=== PATIENT | female | born 1960 | race Caucasian/White ===

== ENCOUNTER 2017-05-05 10:11 | Outpatient (CLI) | payer BC | END 2017-05-05 10:12 | disposition home or self-care (01) | LOC: LABBT 10:11 | PROVIDERS: ATTEND Surgery | DX: Z01.818 Encounter for other preprocedural examination (principal); D24.2 Benign neoplasm of left breast; N63.0 Unspecified lump in unspecified breast ==

== ENCOUNTER 2017-05-07 08:36 | Inpatient (IN) | payer BC ==
[2017-05-07] MEDS ORDERED: CEFAZOLIN/Water 2 GM/20 ML SYRINGE ONE (09:21)
[2017-05-07] MEDS ORDERED: Fentanyl 100 MCG/2 ML VIAL ONE ×3 (11:02→14:00)
[2017-05-07] MEDS ORDERED: HYDROmorphone 0.5 MG/0.5 ML SYRINGE ONE (11:02)
[2017-05-07] MEDS ORDERED: Midazolam HCl 2 mg/2 ml Vial ONE (11:08)
[2017-05-07] MEDS ORDERED: Propofol 200 MG/20 ML VIAL ONE (13:38)
[2017-05-07] MEDS ORDERED: Dexamethasone 20 MG/5 ML VIAL ONE (13:38)
[2017-05-07] MEDS ORDERED: Lidocaine 1% PF 5 ML VIAL ONE (13:38)
[2017-05-07] MEDS ORDERED: Ondansetron HCl/PF 4 MG/2 ML Vial ONE (13:38)
[2017-05-07] MEDS ORDERED: Metoclopramide HCl 10 MG/2 ML VIAL ONE (13:38)
[2017-05-07] MEDS ORDERED: Ondansetron HCl/PF 4 MG/2 ML Vial IVP PRN ×2 (13:47→13:53)
[2017-05-07] MEDS ORDERED: diphenhydrAMINE 50 MG/ML VIAL IVP PRN (13:47)
[2017-05-07] MEDS ORDERED: Naloxone HCl 0.4 mg/ml Vial IV PRN (13:47)
[2017-05-07] MEDS ORDERED: diphenhydrAMINE 25 MG CAP PO PRN (13:47)
[2017-05-07] MEDS ORDERED: Fentanyl 5000 MCG/250 ML CADD IVPB PRN (13:47)
[2017-05-07] MEDS ORDERED: diphenhydrAMINE 50 MG/ML VIAL IM PRN (13:47)
[2017-05-07] MEDS ORDERED: Zolpidem Tartrate 5 MG TAB PO PRN (13:47)
[2017-05-07] MEDS ORDERED: Promethazine HCl 25 MG/ML VIAL IM PRN ×2 (13:47→13:53)
[2017-05-07] MEDS ORDERED: hydrALAZINE 20 MG/ML VIAL SLOW IVP PRN (13:53)
[2017-05-07] MEDS ORDERED: Dextrose 50% Abboject 50 ML SYRINGE SLOW IVP PRN (13:53)
[2017-05-07] MEDS ORDERED: Dextrose 5% in Water 1,000 ML IV PRN (13:53)
[2017-05-07] MEDS ORDERED: [UNRECOGNIZED DRUG - REMARK] FS SCH (14:00)
[2017-05-07] MEDS ORDERED: fentaNYL Citrate/PF 2,000 MCG in Sodium Chloride 0.9% 60 ML IV PRN (14:30)
[2017-05-07] MEDS: Sodium Chloride 0.9% 1,000 ML IV SCH (15:30)
[2017-05-07 15:51] VITALS: BMI 31.4
[2017-05-07] MEDS ORDERED: FLU VACC QS2017-18 36 mo. & older 0.5 ML SYRINGE IM ONE (16:45)
[2017-05-07] MEDS: Ketorolac Tromethamine 30 MG/ML VIAL IVP PRN (19:18)
[2017-05-07] MEDS: Famotidine 20 MG TAB PO SCH (20:59)
[2017-05-07] MEDS: Acetaminophen 1,000 MG in Premix Bag 1 BAG IVPB PRN (21:36)
--- NOTE | 2017-05-07 21:44 | OP ---
DATE OF PROCEDURE: 05/07/2017 PREOPERATIVE DIAGNOSES: 1. History of intraductal papilloma. 2. History of chronic severe breast pain. 3. Recurrent left breast mass. POSTOPERATIVE DIAGNOSES: 1. History of intraductal papilloma. 2. History of chronic severe breast pain. 3. Recurrent left breast mass. PROCEDURE: Left simple mastectomy. SURGEON: Liam Keith MD ANESTHESIA: General. ESTIMATED BLOOD LOSS: Minimal. COMPLICATIONS: None. SPECIMEN: Left breast marked with two short superior, one long lateral. INDICATION: The patient is a 56-year-old female with a history of left lumpectomy for mammographic a bnormality. This was biopsied and revealed potential for DCIS. Her pathology on lumpectomy revealed intraductal papilloma, but no obvious malignancy. The patient had severe sharp pain in her breast a lmost immediately after that surgery that persisted postop. She has undergone local block with stero ids and Marcaine in the office with no improvement. She has been on both NSAIDs and narcotics for th is pain that will not improve. She has recurrent mass in the area of previous lumpectomy, an ultraso und revealed it to the most likely just scar tissue. There were a few small cysts in the area. Afte r a long discussion with the patient about options including frequent blocks or long-term pain manage ment, she elected to and desired simple mastectomy. Risks, benefits, alternatives were discussed. S he understood the risk of bleeding, infection, scarring, flap necrosis, persistent chronic pain, gave consent for surgery. TECHNIQUE: The patient was taken to the operating room and placed supine on the table. After genera l anesthetic was obtained, the left chest was prepped and draped in a sterile fashion. An elliptical incision was used to ellipse out the nipple areolar complex. Flaps are raised superior to the level of clavicle, medial to the sternum, laterally to latissimus dorsi muscle, inferiorly to the inframam li fold. The breast is taken off the chest wall with the pectoralis fascia coming with the specime n, leaving the muscle intact underneath. Meticulous hemostasis was obtained in the wound, the left c hest cavity is irrigated, and the 19-round drain brought out through a separate stab incision, left i n the left breast cavity. The wound was closed using 3-0 Vicryl, 4-0 Monocryl, and Dermabond. The p atient was en route to recovery in stable condition. All instrument counts, needle counts, and lap c ounts were correct.
[2017-05-08] MEDS: Ketorolac Tromethamine 30 MG/ML VIAL IVP PRN ×4 (01:17→23:31)
[2017-05-08] MEDS: Acetaminophen 1,000 MG in Premix Bag 1 BAG IVPB PRN (04:50)
[2017-05-08] MEDS: Famotidine 20 MG TAB PO SCH ×2 (08:29→20:23)
[2017-05-08] MEDS ORDERED: Estradiol 1 MG TAB PO SCH (09:00)
[2017-05-08] MEDS ORDERED: Loratadine/Pseudoephedrine 10/240 mg Tablet PO PRN (09:00)
[2017-05-08] MEDS: Estradiol 1 MG TAB PO SCH (13:45)
[2017-05-08] MEDS: Acyclovir 400 mg Tablet PO SCH ×2 (17:26→20:23)
[2017-05-08] MEDS: Sodium Chloride 0.9% 1,000 ML IV SCH (17:28)
[2017-05-09] MEDS: Estradiol 1 MG TAB PO SCH (08:18)
[2017-05-09] MEDS: Acyclovir 400 mg Tablet PO SCH (08:18)
[2017-05-09] MEDS: Famotidine 20 MG TAB PO SCH (08:18)
[2017-05-09] MEDS: Ketorolac Tromethamine 30 MG/ML VIAL IVP PRN (08:23)
[2017-05-09] MEDS ORDERED: Polyethylene Glycol 3350 17 GM Packet PO SCH (09:55)
[2017-05-09 12:01] VITALS: BP 132/76; TEMP 98.1
[2017-05-10] MEDS ORDERED: Polyethylene Glycol 3350 17 GM Packet PO SCH (09:00)
--- NOTE | 2017-05-12 11:14 | DIS ---
DATE OF ADMISSION: 05/07/2017 DATE OF DISCHARGE: 05/09/2017 ADMITTING DIAGNOSES: Left breast and intraductal papilloma; left breast severe chronic pain, status post left breast mastectomy. POSTOPERATIVE DIAGNOSES: Left breast and intraductal papilloma; left breast severe chronic pain, sta tus post left breast mastectomy; herpes zoster outbreak. PROCEDURES: Left mastectomy, simple. ATTENDING: Liam Keith M.D. COMPLICATIONS: None. CONDITION AT DISCHARGE: Improved. HOSPITAL COURSE: On postop day #2, the patient is doing well. Her pain is controlled. Her drain te aching has been performed. She did have back pain followed by rash outbreak consistent with zoster o utbreak, which she has had before. She was started on her normal acyclovir. She is being discharged home. The family and friends have been instructed on drain care. She is going to keep herself wrap ped to the most part. She will follow up with my office and have Dr. Bo remove her drain next or if it is less than 30 mL a day. Otherwise, she will see me back in a week from Thu. Prescription given for acyclovir 400 mg p.o. t.i.d. for 5 days, tramadol 50 mg 1-2 p.o. q.6 kalyani rs p.r.n. pain, and Ambien 5 mg p.o. at bedtime p.r.n.
== END 2017-05-09 13:18 | disposition home or self-care (01) | DRG 584 ==
LOC: SDC 08:36 → ONC 12:45 → SDC 05-08 10:45 → ONC 05-08 15:40 → SURG A 05-08 17:48
PROVIDERS: ADMIT Surgery; ATTEND Surgery
PROC: 0HTU0ZZ Resection of Left Breast, Open Approach (ICD-10-PCS; principal; 2017-05-08)
DX: D24.2 Benign neoplasm of left breast (principal); B02.8 Zoster with other complications; N64.4 Mastodynia
CPT/HCPCS: 36416; 88307; J0131; J1100; J1170; J1885; J2001; J2250; J2405; J2704; J2765; J3010; J7050

== ENCOUNTER 2017-07-06 05:46 | Day surgery (SDC) | payer BC ==
[2017-07-03 08:47] VITALS: BMI 30.5
[2017-07-06] MEDS ORDERED: Heparin 5,000 UNITS/ML VIAL ONE (06:22)
[2017-07-06] MEDS ORDERED: CEFAZOLIN/Water 2 GM/20 ML SYRINGE ONE (06:22)
[2017-07-06] MEDS ORDERED: Lidocaine 1% w/Epinephrine 1:200K 30 ML VIAL ONE (06:43)
[2017-07-06] MEDS ORDERED: Bupivacaine 0.25% HCL 30 ML VIAL ONE (06:43)
[2017-07-06] MEDS ORDERED: Bupivacaine HCl 0.5%/Epinephrine 1:200,000/PF 30 ml Vial ONE (06:43)
[2017-07-06] MEDS ORDERED: Gentamicin 80 MG/2 ML VIAL ONE (06:43)
[2017-07-06] MEDS ORDERED: Sodium Chloride 0.9% 20 ML ONE (06:45)
[2017-07-06] MEDS ORDERED: Fentanyl 100 MCG/2 ML VIAL ONE ×5 (06:49→11:54)
[2017-07-06] MEDS ORDERED: HYDROmorphone 0.5 MG/0.5 ML SYRINGE ONE ×3 (06:49→12:48)
[2017-07-06] MEDS ORDERED: Midazolam HCl 2 mg/2 ml Vial ONE (07:05)
[2017-07-06] MEDS ORDERED: Ropivacaine 0.2% 550 ML 550 ML NERVE BLCK SCH ×2 (07:45→08:00)
[2017-07-06] MEDS ORDERED: Promethazine HCl 25 MG/ML VIAL IM PRN (07:45)
[2017-07-06] MEDS ORDERED: Ondansetron HCl/PF 4 MG/2 ML Vial IVP PRN (07:45)
[2017-07-06] MEDS ORDERED: traMADol HCl 50 MG TAB PO PRN ×2 (07:45)
[2017-07-06] MEDS ORDERED: Zolpidem Tartrate 5 MG TAB PO PRN (07:45)
[2017-07-06] MEDS ORDERED: HYDROcodone/Acetaminophen 10/325 mg Tablet PO PRN ×2 (07:45)
[2017-07-06] MEDS ORDERED: Fentanyl 100 MCG/2 ML VIAL IV PRN (07:46)
[2017-07-06] MEDS ORDERED: Ropivacaine 0.5% HCl/PF (150 MG/30 ML VIAL) ONE (09:18)
--- NOTE | 2017-07-06 11:11 | OP ---
PREOPERATIVE DIAGNOSES: 1. History of left breast papillomatosis with chronic infections. 2. Status post left mastectomy. 3. Breast asymmetry. 4. Right breast ptosis. PROCEDURES PERFORMED: 1. Placement of left tissue hat brim curler for breast reconstruction (10211.LT). 2. Placement of acellular dermal matrix ([id number]). 3. Right mastopexy. PROCEDURE IN DETAIL: Following induction of adequate anesthesia, the patient was prepped and draped in the usual sterile fashion in the supine position. An inframammary crease incision was made. Diss ection was carried sharply down to the underlying pectoralis fascia. The subsequent and adequate pre pectoral pocket was created. A [place] 375 mL high profile [place] tissue hat brim curler was placed with Al loDerm over its anterior surface. It was secured to the tabs as well as to the fascia inferiorly. T his was done after the pocket was copiously irrigated and inspected for meticulous hemostasis. Irrig ation was triple antibiotic solution and dilute Betadine solution. New gloves were donned for the pl acement of the hat brim curler and barrier dressing was placed for the placement. The incision was then shalonda sed with 3-0 PDS suture and 3-0 Monocryl suture. The port was accessed transcutaneously and the expa nder was filled to a volume of 300 mL. Attention was turned to the right side. A modified Mejia pattern mastopexy had been preoperatively ma rked. The nipple was circumcised around a 42 mm nipple sizer. The skin within the Mejia pattern was epithelialized. Skin flaps were raised superiorly, medially, and laterally. The central pedicle was then sutured superiorly to elevate the breast as well as laterally and medially to sculpt the breast . This some excision was done for sculpting laterally. The field was copiously irrigated and inspec roni for meticulous hemostasis prior to closure of the inverted T with 3-0 PDS suture and 3-0 Monocryl suture with the nipple being brought out through a 42 mm nipple defect. The nipple was inset using 3-0 Monocryl suture. The patient tolerated the procedure well.
[2017-07-06] MEDS ORDERED: Ketorolac Tromethamine 30 MG/ML VIAL ONE (11:54)
[2017-07-06] MEDS ORDERED: diphenhydrAMINE 50 MG/ML VIAL ONE (14:51)
[2017-07-06] MEDS ORDERED: Dexamethasone 20 MG/5 ML VIAL ONE (14:51)
[2017-07-06] MEDS ORDERED: Lidocaine 1% PF 5 ML VIAL ONE (14:51)
[2017-07-06] MEDS ORDERED: Glycopyrrolate 0.2 MG/ML 5 ML SYRINGE ONE (14:51)
[2017-07-06] MEDS ORDERED: PROPOFOL 200 MG/20 ML VIAL ONE (14:51)
[2017-07-06] MEDS ORDERED: Ondansetron HCl/PF 4 MG/2 ML Vial ONE (14:51)
== END 2017-07-06 15:35 | disposition home or self-care (01) ==
LOC: SDC 05:46
PROVIDERS: ATTEND Plastic Surgery
PROC: 0HHU0NZ Insertion of Tissue Expander into Left Breast, Open Approach (ICD-10-PCS; principal; 2017-07-06)
PROC: 0HQT0ZZ Repair Right Breast, Open Approach (ICD-10-PCS; principal; 2017-07-06)
DX: N65.1 Disproportion of reconstructed breast (principal); J45.909 Unspecified asthma, uncomplicated; Z79.890 Hormone replacement therapy; Z79.899 Other long term (current) drug therapy; Z88.5 Allergy status to narcotic agent; Z88.8 Allergy status to other drugs, medicaments and biological substances; Z88.1 Allergy status to other antibiotic agents; Z90.12 Acquired absence of left breast and nipple; Z98.890 Other specified postprocedural states
CPT/HCPCS: 88305; 96374; A4216; A4306; J0131; J0670; J1100; J1170; J1200; J1580; J1644; J1885; J2001; J2250; J2405; J2704; J2795; J3010; J3370; J3490; Q4116; S0020

== ENCOUNTER 2017-10-19 05:28 | Day surgery (SDC) | payer BC ==
[2017-10-16 10:29] VITALS: BMI 29.7
[2017-10-19] MEDS ORDERED: CEFAZOLIN/Water 2 GM/20 ML SYRINGE ONE (06:05)
[2017-10-19] MEDS ORDERED: Heparin 5,000 UNITS/ML VIAL ONE (06:06)
[2017-10-19 06:29] LABS: Hemoglobin 14.6 g/dL (12.0-16.0); Mean Corpuscular HGB CONC 34.2 g/dL (32.0-36.0); Mean Corpuscular Hemoglobin 30.3 pg (27.0-31.0); Mean Corpuscular Volume 88.6 fl (81.0-99.0); Mean Platelet Volume 7.8 fL (7.4-10.4); Platelet Count 261 thou/uL (130-400); RBC Distribution Width 12.2 % (11.5-14.5); White Blood Cell (WBC) Count 8.1 thou/uL (4.8-10.8)
[2017-10-19] MEDS ORDERED: Fentanyl 250 MCG/5 ML VIAL ONE (06:40)
[2017-10-19] MEDS ORDERED: Gentamicin 80 MG/2 ML VIAL ONE (06:41)
[2017-10-19] MEDS ORDERED: Sodium Chloride 0.9% 10 ML ONE (06:41)
[2017-10-19] MEDS ORDERED: Bupivacaine/Epinephrine 0.25% 30 ML VIAL ONE ×2 (06:41→07:56)
[2017-10-19 07:00] LABS: Eosinophils 2 % (0-10); Lymphocytes 35 % (21-51); MDiff Complete? YES; Monocytes 7 % (0-10); Neutrophil 56 % (42-75)
[2017-10-19] MEDS ORDERED: Midazolam HCl 2 mg/2 ml Vial ONE (07:22)
[2017-10-19] MEDS ORDERED: EPINEPHrine 1 MG/ML AMP ONE (07:45)
[2017-10-19] MEDS ORDERED: Fentanyl 100 MCG/2 ML VIAL ONE (10:21)
[2017-10-19] MEDS ORDERED: traMADol HCl 50 MG TAB ONE (11:22)
[2017-10-19] MEDS ORDERED: Ondansetron HCl/PF 4 MG/2 ML Vial ONE (12:21)
[2017-10-19] MEDS ORDERED: PROPOFOL 200 MG/20 ML VIAL ONE (12:21)
[2017-10-19] MEDS ORDERED: Dexamethasone 20 MG/5 ML VIAL ONE (12:21)
[2017-10-19] MEDS ORDERED: Glycopyrrolate 0.2 MG/ML 5 ML SYRINGE ONE (12:21)
[2017-10-19] MEDS ORDERED: Lidocaine 1% PF 5 ML VIAL ONE (12:21)
--- NOTE | 2017-10-19 12:48 | EKG ---
Test Reason : PREOP Blood Pressure : / mmHG Vent. Rate : 061 BPM Atrial Rate : 061 BPM P-R Int : 156 ms QRS Dur : 080 ms QT Int : 422 ms P-R-T Axes : 044 022 036 degrees QTc Int : 424 ms Normal sinus rhythm Normal ECG No previous ECGs available Confirmed by KARLA KELLEY ([id number]), film editor supervisor BREANNA WOODS ([id number]) on 10/19/2017 12:47:38 PM Referred By: NATALIIA Confirmed By:KARLA KELLEY
--- NOTE | 2017-10-19 19:19 | OP ---
PREOPERATIVE DIAGNOSES: 1. Status post left mastectomy. 2. Status post left tissue talent acquisition assistant placement. PROCEDURE: 1. Replacement of left tissue talent acquisition assistant with capsule work (). 2. Fat grafting, left breast (). PROCEDURE IN DETAIL: Following induction of adequate anesthesia, the patient was prepped and draped in the usual sterile fashion in supine position. An inframammary crease incision was made with disse ction being carried down sharply through the subcutaneous tissue to the underlying capsule, which was incised. A small amount of unincorporated Strattice was excised. The remainder of the capsule look ed very good. The pocket was opened superiorly from 10 o'clock to 12 o'clock to 2 o'clock to allow f or proper redraping. The pocket was copiously irrigated with dilute antibiotic solution and dilute B etadine solution prior to placement of a sizer to determine what implant would give the symmetry. A [place] 375 high profile implant was chosen. The sizer was removed and the pocket was reirrigated and inspected meticulous hemostasis prior to placement of a skin barrier and placement of final implant using no touch technique. The inframammary crease incision was closed in layers using 3-0 PDS suture and 3-0 Monocryl suture. Attention was turned to the fat grafting. A 1:100,000 epinephrine, tumescent fluid was injected into the abdomen. After set out adequate time to take effect, traditional liposuction was performed to h arvest fat. The fat was allowed to separate by gravity and then was decanted. The fat was then rein jected in an immediate subdermal subcutaneous plane using microdroplet technique. This was done thro ugh an 18 gauge stab incision lateral to the mastectomy scar. The incision was closed with 5-0 fast gut suture. The abdominal incision was closed with 4-0 Monocryl suture. The patient tolerated the p rocedure well.
== END 2017-10-19 12:23 | disposition home or self-care (01) ==
LOC: SDC 05:28
PROVIDERS: ATTEND Plastic Surgery
PROC: 0HPU0NZ Removal of Tissue Expander from Left Breast, Open Approach (ICD-10-PCS; principal; 2017-10-19)
PROC: 0HHU0NZ Insertion of Tissue Expander into Left Breast, Open Approach (ICD-10-PCS; principal; 2017-10-19)
DX: Z45.812 Encounter for adjustment or removal of left breast implant (principal); N60.12 Diffuse cystic mastopathy of left breast; Z88.5 Allergy status to narcotic agent; Z79.899 Other long term (current) drug therapy
CPT/HCPCS: 36415; 85025; 93005; 93010; 96374; A4216; J0171; J1100; J1580; J1644; J2001; J2250; J2405; J2704; J3010; J3370; J3490; L8600

== ENCOUNTER 2018-09-25 02:38 | Inpatient (IN) | payer OTHER ==
[2018-09-25] MEDS ORDERED: Ondansetron PF 4 MG/2 ML Vial ONE (03:44)
[2018-09-25] MEDS ORDERED: Morphine 2 MG/ML SYRINGE ONE (03:44)
[2018-09-25] MEDS ORDERED: Fentanyl 100 MCG/2 ML VIAL ONE (03:50)
[2018-09-25 05:25] VITALS: BMI 32.1
[2018-09-25] MEDS ORDERED: Ondansetron ODT 4 MG TAB SL PRN (05:25)
[2018-09-25] MEDS ORDERED: Ondansetron PF 4 MG/2 ML Vial IVP PRN (05:25)
[2018-09-25] MEDS: Fentanyl 100 MCG/2 ML VIAL SLOW IVP PRN ×6 (05:46→23:33)
[2018-09-25 06:36] LABS: Troponin I Less than 0.010 ng/mL (< 0.028)
[2018-09-25] MEDS ORDERED: Aspirin Chewable 81 MG TAB PO SCH (09:00)
[2018-09-25 09:34] LABS: Troponin I Less than 0.010 ng/mL (< 0.028)
[2018-09-25] MEDS ORDERED: ISOVUE-370 76%-LOCM 1 ML ONE (11:08)
[2018-09-25] MEDS: Sodium Chloride 0.9% 1,000 ML IV SCH ×2 (12:02→20:18)
--- NOTE | 2018-09-25 18:12 | HP ---
CHIEF COMPLAINT: Syncope and chest pain. HISTORY OF PRESENT ILLNESS: This patient is a 57-year-old female, who reports that 1 month ago, she had elevated blood pressure. Her pressures were in the [address] Michelle Conner, who gave her some antihypertensive. She reports at that time she was having some chest pains that were radiating to her left shoulder and arm. She states that Dr. Conner wanted to treat her medically and address the blood pressure. She did in fact give her antihypertensives to include lisinopril/hydrochlorothiazide . The patient reports that subsequent to that her blood pressure systolically would drop into the 90s. She reports at one point it got as low as 60s. She stated that when she would get up to walk to let her dog out, she would break out in a cold sweat and feel lightheaded. She thought this might have been related to the pressure being too low. She does report that her chest pain symptoms did improve after that, but she has profound fatigue. She also reports that she has some generalized fluid retention, which is why she had the hydrochlorothiazide portion included in her antihypertensives. She reports that she initially saw Dr. Rainey because Dr. Conner was out, and he checked a thyroid level, which was abnormal; however, when she followed up with Dr. Conner, had it repeated, it was in the normal range. The patient reports that 2 days ago, she was experiencing significant indigestion and reflux-type symptoms. She had associated pain in her neck and shoulders. Yesterday she was at baseline when out with her cousin in the evening to a restaurant, the two of them had a regular meal, but split a bottle of wine. She decided to get up to go to the bathroom. When she got to the bathroom, she became nauseated and states that everything went black and she passed out. Apparently, she was found by a bystander coming into the bathroom and noted that she was on her back and had vomited. That bystander rolled her off her back onto her side and apparently performed CPR. The patient's cousin responded and indicates that the patient was actually which she would consider coherent; however, the patient does not remember anything other than them trying to load her into her cousin's truck and then getting loaded into the bed at the emergency room, but she does not remember anything in between those episodes. The patient's cousin reports that the patient herself indicated that she needed to go to the emergency department. In the emergency department in [place] where they initially presented, the patient reports that when she "came to," she was experiencing significant chest pain, which felt like a pressure, someone sitting on her chest. She initially attributed to the fact that she had lifted some boxes at work yesterday before going out for the evening. She reports she does have some associated shortness of breath, and the pain is primarily in the left chest and does radiate down the left arm. REVIEW OF SYSTEMS: Notable for some exertional chest pain when she gets out and try to walk her dogs. Otherwise, all systems reviewed, all pertinent positives and negatives noted in the history of present illness. PAST MEDICAL HISTORY: Notable for hypertension; irritable bowel syndrome, which has been quiescent for some time; history of breast cancer with no chemo or radiation, surgery only. She also reports "shingles" that occur at the upper gluteal cleft and occur one side or the other frequently multiple times throughout the year. She reports this has been going on since she was 19 years old, and she does get the classic blister formation. The patient also reports that in 2011, she was having some neck problems and received tizanidine and subsequently baclofen. She states within a matter of day, she ended up in the hospital and from what she describes she had substantial volume overload and ascites. She was told that she had liver and heart failure and would need a transplant of both organs and only had 6 months to live. Otherwise, she states she was in the hospital for a month. They attempted to do a liver biopsy, but had to do a paracentesis first and then did do the biopsy. She says that they had her tuned up and sent her home, and within 3 days, she was back in the hospital, all the while she was still taking the tizanidine and baclofen. During the 2nd admission, she was told by another specialist that the symptoms were a textbook medication reaction and they took her off those medications and her symptoms improved. Apparently, she somewhere in there she was told that she had hepatitis C and was going to need another liver biopsy, but she states she followed up with Dr. Azul, who checked serologies and told her that she did not have hepatitis C. Labs within our electronic record system indicate that she had a hepatitis panel performed in 2012, and under result of hepatitis C antibody is high-weighted LESS, reflex RIBA, indication that there is a high value. She reports that she has not had any significant problems since that time. PAST SURGICAL HISTORY: Appendectomy, tonsillectomy, hysterectomy, multiple breast surgeries related to the cancer, which initially involved a lumpectomy, subsequent mastectomy, and then reconstruction. FAMILY HISTORY: Father of cancer. Her mother had dementia, hypertension, and also had colon cancer. She has two brothers with hypertension and third brother with colon cancer. There is no coronary artery disease in the family. SOCIAL HISTORY: No tobacco use. The patient rarely uses alcohol. States she did not drink in six months prior to this event. She denies drugs. She is in a common-law marriage. Her 's name is John Caban. She is full code, and her would be her surrogate decision maker should that become necessary. ALLERGIES: BACLOFEN, CODEINE, HYDROCODONE, MORPHINE, TIZANIDINE. CURRENT MEDICATIONS: 1. Lisinopril/hydrochlorothiazide 10/12.5 one p.o. daily. 2. Estradiol 1 mg p.o. q.a.m. 3. Zyrtec-D 1 p.o. p.r.n. PHYSICAL EXAMINATION: VITAL SIGNS: Temperature 97.9, pulse 78, respirations 18, O2 saturation 98% on room air, and blood pressure is 119/69. GENERAL APPEARANCE: An age-appropriate female, in no distress. She is awake, alert, oriented, pleasant, cooperative, in no distress. HEENT: PERRL. No OP lesions. NECK: Supple and symmetric without lymphadenopathy, JVD, or bruits. HEART: Regular rate and rhythm without murmurs, gallops, or rubs. LUNGS: Clear to auscultation bilaterally with good chest wall expansion and air exchange. ABDOMEN: Soft, nontender, and nondistended. Positive bowel sounds. No masses. No organomegaly. EXTREMITIES: No cyanosis, clubbing, or edema. NEUROLOGICAL: The patient has spontaneous movement of all extremities. Cranial nerves are intact. She has no focal deficits. LABORATORY DATA: White count 8.7, hemoglobin 14.3, and platelets 272. D-dimer 0.6. Sodium 139, potassium 3.1, chloride 106, CO2 of 19, BUN 11, creatinine 0.92. AST 21, ALT 30, troponin initially 0.041, subsequent less than 0.01 x3. Albumin is 4.4, lipase 12. Urinalysis negative. Urine drug screen negative. Initial plasma alcohol was 151. Chest x-ray is negative. CTA of the chest pending. IMPRESSION AND PLAN: 1. Syncopal episode, unclear etiology. Differential includes vasovagal syncope related to alcohol consumption and nausea versus orthostatic hypotension related to recent addition of blood pressure medications versus some other cardiac issue given her unusual history as stated in the past medical history. The patient's EKG is essentially unremarkable other than mildly low potassium and CO2. The patient's labs are otherwise generally unremarkable. Her initial troponin was indeterminate, and subsequent have all been negative. We will obtain an echocardiogram, and orthostatic vital signs and give her some fluids. 2. Elevated troponin in the setting of a syncopal episode. Again, we will check an echocardiogram, it is really in the equivocal range, and Remainders have been negative. Again, the patient may have had some chest compressions as a result of bystander CPR when she was syncopal in the bathroom in the restaurant. This may cause a slight bump in her troponin levels. The patient has no significant risk factors for coronary artery disease other than a very recent diagnosis of hypertension. 3. Elevated D-dimer, minimally elevated. CTA is ordered and pending. 4. Hypertension. The patient is reporting hypotension relative to recent blood pressure medications. We will hold those for now. 5. Acute alcohol intoxication. The patient appears to have resolved this at this point. 6. Possible aspiration. Reviewing the CTA myself, there appears to be a small area of abnormality in the right apex and upper lobe area very laterally. We will wait for the formal read from the radiologist. 7. History of breast cancer. The patient is having chest pain, which could be related to her prior surgeries. She has minimal risk factors for coronary artery disease that certainly has been in the differential as well. We will await the echo results. Continue to keep her on telemetry monitoring. May discuss with Cardiology as well. 8. Hypokalemia, mild. Receive some IV repletion. We will need to recheck to confirm normalization. 9. The patient describes a history of cardiac and liver failure in 2011 and sounds like it is an unusual situation, but thoughtfully will get some infect from the echocardiogram to ensure that she has normal cardiac function. Job ID: [id number]
[2018-09-26] MEDS: Fentanyl 100 MCG/2 ML VIAL SLOW IVP PRN ×5 (04:11→23:06)
[2018-09-26] MEDS ORDERED: ADENOSINE 60 MG/20 ML VIAL ONE (09:58)
[2018-09-26] MEDS ORDERED: Diabetic Tussin 200 MG/10 ML UDCUP PO PRN (11:13)
[2018-09-26] MEDS ORDERED: Zolpidem Tartrate 5 MG TAB PO PRN (11:13)
[2018-09-26] MEDS ORDERED: Sodium Chloride 0.65% Nasal 44 ML BOT EA NARE PRN (11:13)
[2018-09-26] MEDS ORDERED: Cepastat Lozenges 1 LOZ PO PRN (11:13)
[2018-09-26] MEDS ORDERED: Ondansetron PF 4 MG/2 ML Vial IVP PRN (11:13)
[2018-09-26] MEDS ORDERED: Bisacodyl 5 MG TAB PO PRN (11:13)
[2018-09-26] MEDS ORDERED: Loperamide HCl 2 MG CAP PO PRN (11:13)
[2018-09-26] MEDS ORDERED: Ondansetron ODT 4 MG TAB PO PRN (11:13)
[2018-09-26] MEDS ORDERED: Senokot S 8.6-50 MG TAB PO PRN (11:13)
[2018-09-26] MEDS ORDERED: Artificial Tear Sol 15 ML BOT EA EYE PRN (11:13)
[2018-09-26] MEDS ORDERED: Eucerin (Mineral Oil/Petrolatum,White) 30 gm Jar TOP PRN (11:13)
[2018-09-26] MEDS ORDERED: Loratadine 10 MG TAB PO PRN (11:13)
--- NOTE | 2018-09-26 11:13 | PDOC.PN ---
- Subjective Encounter Start Date: 09/26/18 Encounter Start Time: 15:33 -: old records requested/rev Patient seen and examined. No new complaints. No overnight events she feels dizzy when walk - Objective Resuscitation Status - Order Detail: 09/25/18 10:30 Resuscitation Status Routine Resuscitation Status: FULL: Full Resuscitation MAR Reviewed: Yes Vital Signs & Weight: Vital Signs (12 hours) Temp Pulse Resp BP Pulse Ox 09/26/18 07:57 97.7 F 68 16 119/75 97 09/26/18 04:00 97.6 F 76 16 110/63 99 09/25/18 23:54 98.4 F 72 16 109/59 L 95 Weight Weight 181 lb 6.4 oz I&O: 09/25/18 09/26/18 09/27/18 06:59 06:59 06:59 Intake Total 270 2712 Output Total 500 Balance -230 2712 Radiology Reviewed by me: Yes EKG Reviewed by me: Yes Phys Exam - Physical Examination Constitutional: NAD HEENT: PERRLA, moist MMs, sclera anicteric Neck: no JVD, supple Respiratory: no wheezing, no rales, no rhonchi Cardiovascular: RRR, no significant murmur, no rub Gastrointestinal: soft, non-tender, no distention, positive bowel sounds Musculoskeletal: no edema, pulses present Neurological: non-focal, normal sensation, moves all 4 limbs Lymphatic: no nodes Psychiatric: normal affect, A&O x 3 Skin: no rash, normal turgor Dx/Plan (1) Chest pain Code(s): R07.9 - CHEST PAIN, UNSPECIFIED Status: Acute (2) Elevated d-dimer Code(s): R79.89 - OTHER SPECIFIED ABNORMAL FINDINGS OF BLOOD CHEMISTRY Status : Acute (3) Hypokalemia Code(s): E87.6 - HYPOKALEMIA Status: Acute (4) Syncope Code(s): R55 - SYNCOPE AND COLLAPSE Status: Acute (5) H/O malignant neoplasm of breast Code(s): Z85.3 - PERSONAL HISTORY OF MALIGNANT NEOPLASM OF BREAST Status: Chronic (6) Hypertension Code(s): I10 - ESSENTIAL (PRIMARY) HYPERTENSION Status: Chronic (7) Obesity (BMI 30.0-34.9) Code(s): E66.9 - OBESITY, UNSPECIFIED Status: Chronic (8) Acute alcohol intoxication Code(s): F10.929 - ALCOHOL USE, UNSPECIFIED WITH INTOXICATION, UNSPECIFIED Status: Resolved (9) Elevated troponin Code(s): R74.8 - ABNORMAL LEVELS OF OTHER SERUM ENZYMES Status: Resolved - Plan cont current plan of care * CTA negative * Echo unremarkable * today stress test * continue IVF * suspecting hypotension contributed her presentation and suspecting from antihypertensive meds * medication reviewed as below * symptomatic treatment. * will monitor Review of Systems - Review of Systems ENT: negative: Ear Pain, Ear Discharge, Nose Pain, Nose Discharge, Nose Congestion, Mouth Pain, Mouth Swelling, Throat Pain, Throat Swelling, Other Respiratory: negative: Cough, Dry, Shortness of Breath, Hemoptysis, SOB with Excertion, Pleuritic Pain, Sputum, Wheezing Cardiovascular: negative: chest pain, palpitations, orthopnea, paroxysmal nocturnal dyspnea, edema, light headedness, other Gastrointestinal: negative: Nausea, Vomiting, Abdominal Pain, Diarrhea, Constipation, Melena, Hematochezia, Other Genitourinary: negative: Dysuria, Frequency, Incontinence, Hematuria, Retention , Other Musculoskeletal: negative: Neck Pain, Shoulder Pain, Arm Pain, Back Pain, Hand Pain, Leg Pain, Foot Pain, Other - Medications/Allergies Allergies/Adverse Reactions: Allergies Allergy/AdvReac Type Severity Reaction Status Date / Time baclofen Allergy Verified 09/25/18 06:01 codeine Allergy Verified 09/25/18 06:01 hydrocodone Allergy Verified 09/25/18 06:01 morphine Allergy itching- Verified 09/25/18 06:01 "can see it track up my vein as they give it" tizanidine Allergy Verified 09/25/18 06:01 Medications: Current Medications Enoxaparin Sodium (Lovenox) 40 mg SC 0900 [facility] Estradiol (Estrace) 1 mg PO QAM [facility] Fentanyl (Sublimaze) 25 mcg SLOW IVP Q3H PRN PRN Reason: Pain Last Admin: 09/26/18 04:11 Dose: 25 mcg Sodium Chloride (Normal Saline 0.9%) 1,000 mls @ 100 mls/hr IV .Q10H ENMA Last Admin: 09/25/18 20:18 Dose: 1,000 mls
[2018-09-26] MEDS: Sodium Chloride 0.9% 1,000 ML IV SCH ×2 (11:23→21:58)
[2018-09-26] MEDS: Enoxaparin Sodium 40 MG/0.4 ML SYRINGE SC SCH (11:24)
[2018-09-26] MEDS: Estradiol 1 MG TAB PO SCH (11:43)
--- NOTE | 2018-09-26 11:58 | NM ---
Nuclear medicine Cardiac myocardial perfusion SPECT Ejection fraction study Wall motion cine: DATE: 09/26/2018 History: 57-year-old hypertensive female presents with chest pain TECHNIQUE: Number of days:1 Rest study: Technetium 99m-sestamibi (Cardiolite) dose:10.0 mCi Pharmacologic stress: Adenosine dose:45.9 mg Stress study: Technetium 99m-sestamibi (Cardiolite) dose:27.0 mCi FINDINGS: Cardiac (myocardial perfusion) SPECT There are no reversible myocardial perfusion defects. Ejection fraction study Left ventricular EF = 77% Wall motion cine Normal IMPRESSION: No evidence of reversible ischemia.
--- NOTE | 2018-09-26 13:32 | CT ---
PRELIMINARY REPORT/[facility]/EMERGENTY AFTER-HOURS PROCEDURE CT Angiography Chest With Contrast EXAM DATE/TIME: 09/25/2018 4:01 AM CLINICAL HISTORY: 57 years old, female; Patient HX: Er 9. , Elevated d-dimer; Chest pain; F57 presents to ED as xfer fr [facility] for elevated trop. PT was found unresponsive in a bathroom by a bystander after consu asha alcohol. PT denies that this has ever happened. PT reports she has been having chest pain for th e last few days as well as chronic syncope episodes. TECHNIQUE: Imaging protocol: Axial computed tomographic angiography images of the chest with intravenous contras t using CT angiography protocol. 3D rendering: MIP reconstructed images were created and reviewed. COMPARISON: No relevant prior studies available. FINDINGS: Pulmonary arteries: No evidence of pulmonary embolism. Aorta: No acute findings. No aortic aneurysm or dissection. Lungs: No consolidation. No masses. Apical peripheral nodularity /scarring. Mild dependent atelectasis. Pleural space: No pneumothorax. No pleural effusion. Heart: No cardiomegaly. No pericardial effusion. Lymph nodes: No significant adenopathy. Bones/joints: No acute fracture. Soft tissues: Left breast implant. IMPRESSION: No acute findings. No evidence of pulmonary embolism. Thank you for allowing us to participate in the care of your patient. Dictated and Authenticated by: Isidoro Sevilla MD 09/25/2018 4:51 AM Central Time ([place] & [place]) FINAL REPORT CTA CHEST: No evidence of pulmonary embolus. No acute lung process. I am in agreement with the preliminary report. POS: OFF
[2018-09-27] MEDS: Fentanyl 100 MCG/2 ML VIAL SLOW IVP PRN ×2 (04:06→07:43)
[2018-09-27] MEDS: Sodium Chloride 0.9% 1,000 ML IV SCH (07:44)
[2018-09-27] MEDS: Estradiol 1 MG TAB PO SCH (08:35)
[2018-09-27] MEDS: Enoxaparin Sodium 40 MG/0.4 ML SYRINGE SC SCH (08:35)
--- NOTE | 2018-09-27 10:29 | PDOC.PN ---
- Subjective Encounter Start Date: 09/27/18 Encounter Start Time: 07:10 -: old records requested/rev pt has vertigo, she feels nausea and dizziness with change in position, - Objective Resuscitation Status - Order Detail: 09/25/18 10:30 Resuscitation Status Routine Resuscitation Status: FULL: Full Resuscitation MAR Reviewed: Yes Vital Signs & Weight: Vital Signs (12 hours) Temp Pulse Resp BP BP BP BP 09/27/18 08:29 98.3 F 66 16 142/86 H 145/87 H 140/79 09/27/18 03:51 98.3 F 63 16 119/62 09/26/18 23:47 97.7 F 63 16 136/77 Pulse Ox 09/27/18 08:29 98 09/27/18 03:51 96 09/26/18 23:47 97 Weight Weight 181 lb 6.4 oz I&O: 09/26/18 09/27/18 09/28/18 06:59 06:59 06:59 Intake Total 2712 2172 Balance 2712 2172 EKG Reviewed by me: Yes (nsr) Phys Exam - Physical Examination Constitutional: NAD HEENT: PERRLA, moist MMs, sclera anicteric Neck: no JVD, supple Respiratory: no wheezing, no rales, no rhonchi Cardiovascular: RRR, no significant murmur, no rub Gastrointestinal: soft, non-tender, no distention, positive bowel sounds Musculoskeletal: no edema, pulses present Neurological: non-focal, normal sensation, moves all 4 limbs nystegmus, reported diplopia with right gaze Lymphatic: no nodes Psychiatric: normal affect, A&O x 3 Skin: no rash, normal turgor Dx/Plan (1) Chest pain Code(s): R07.9 - CHEST PAIN, UNSPECIFIED Status: Acute Comment: musculoskeletal pain after CPR (2) Elevated d-dimer Code(s): R79.89 - OTHER SPECIFIED ABNORMAL FINDINGS OF BLOOD CHEMISTRY Status : Acute Comment: negative CTA (3) Hypokalemia Code(s): E87.6 - HYPOKALEMIA Status: Resolved (4) Syncope Code(s): R55 - SYNCOPE AND COLLAPSE Status: Acute Comment: likely orthostatic hypotension (5) H/O malignant neoplasm of breast Code(s): Z85.3 - PERSONAL HISTORY OF MALIGNANT NEOPLASM OF BREAST Status: Chronic (6) Hypertension Code(s): I10 - ESSENTIAL (PRIMARY) HYPERTENSION Status: Chronic (7) Obesity (BMI 30.0-34.9) Code(s): E66.9 - OBESITY, UNSPECIFIED Status: Chronic (8) Acute alcohol intoxication Code(s): F10.929 - ALCOHOL USE, UNSPECIFIED WITH INTOXICATION, UNSPECIFIED Status: Resolved (9) Elevated troponin Code(s): R74.8 - ABNORMAL LEVELS OF OTHER SERUM ENZYMES Status: Resolved (10) Vertigo Code(s): R42 - DIZZINESS AND GIDDINESS Status: Acute - Plan cont current plan of care * orthostatic vitals are OK * DC IVF today * start antivert 25 mg po tid * get MRI brain * medication reviewed as below * symptomatic treatment * she may follow up with cardio for any holter monitoring. Review of Systems - Review of Systems ENT: negative: Ear Pain, Ear Discharge, Nose Pain, Nose Discharge, Nose Congestion, Mouth Pain, Mouth Swelling, Throat Pain, Throat Swelling, Other Respiratory: negative: Cough, Dry, Shortness of Breath, Hemoptysis, SOB with Excertion, Pleuritic Pain, Sputum, Wheezing Cardiovascular: light headedness. negative: chest pain, palpitations, orthopnea , paroxysmal nocturnal dyspnea, edema, other Gastrointestinal: negative: Nausea, Vomiting, Abdominal Pain, Diarrhea, Constipation, Melena, Hematochezia, Other Genitourinary: negative: Dysuria, Frequency, Incontinence, Hematuria, Retention , Other Musculoskeletal: negative: Neck Pain, Shoulder Pain, Arm Pain, Back Pain, Hand Pain, Leg Pain, Foot Pain, Other - Medications/Allergies Allergies/Adverse Reactions: Allergies Allergy/AdvReac Type Severity Reaction Status Date / Time baclofen Allergy Verified 09/25/18 06:01 codeine Allergy Verified 09/25/18 06:01 hydrocodone Allergy Verified 09/25/18 06:01 morphine Allergy itching- Verified 09/25/18 06:01 "can see it track up my vein as they give it" tizanidine Allergy Verified 09/25/18 06:01 Medications: Current Medications Artificial Tears (Liquitears 15ml Bottle) 2 drop EA EYE PRN PRN PRN Reason: Dry Eyes Bisacodyl (Dulcolax) 10 mg PO DAILYPRN PRN PRN Reason: Constipation Last Admin: 09/27/18 08:39 Dose: 10 mg Enoxaparin Sodium (Lovenox) 40 mg SC 0900 [facility] Last Admin: 09/27/18 08:35 Dose: 40 mg Estradiol (Estrace) 1 mg PO QAM [facility] Last Admin: 09/27/18 08:35 Dose: 1 mg Fentanyl (Sublimaze) 25 mcg SLOW IVP Q3H PRN PRN Reason: Pain Last Admin: 09/27/18 07:43 Dose: 25 mcg Guaifenesin (Robitussin Sf) 200 mg PO Q4H PRN PRN Reason: Cough Loperamide HCl (Imodium) 2 mg PO PRN PRN PRN Reason: Diarrhea/Loose Stools Loratadine (Claritin) 10 mg PO DAILYPRN PRN PRN Reason: Sinus Symptoms Meclizine HCl (Antivert) 25 mg PO Q8HR [facility] Meclizine HCl (Antivert) 25 mg PO NOW [facility] Stop: 09/27/18 12:00 Mineral Oil/White Petrolatum (Eucerin Cream) 0 gm TOP BIDPRN PRN PRN Reason: Dry Skin Ondansetron HCl (Zofran Odt) 4 mg PO Q6H PRN PRN Reason: Nausea/Vomiting Ondansetron HCl (Zofran) 4 mg IVP Q6H PRN PRN Reason: Nausea/Vomiting Senna/Docusate Sodium (Senokot S) 2 tab PO BID PRN PRN Reason: Constipation Sodium Chloride ([place] Nasal [place] 0.65%) 0 ml EA NARE QIDPRN PRN PRN Reason: Nasal Congestion Throat Lozenges (Cepastat Lozenges) 1 pedro PO Q2H PRN PRN Reason: Sore Throat Zolpidem Tartrate (Ambien) 5 mg PO HSPRN PRN PRN Reason: Insomnia
[2018-09-27] MEDS ORDERED: Meclizine HCl 25 MG TAB PO SCH ×3 (10:30→20:00)
[2018-09-27] MEDS ORDERED: Ketorolac Tromethamine 30 MG/ML VIAL IVP PRN (11:19)
--- NOTE | 2018-09-27 15:20 | MRI ---
MRI Brain WO Con: 09/27/2018 10:20 AM CLINICAL HISTORY: Vertigo. COMPARISON: None. FINDINGS: Extra axial spaces: Normal in size and morphology for the patient's age. Acute infarction: None. Ventricular system: Normal in size and morphology for the patient's age. Basal cisterns: Normal. Cerebral parenchyma: Microvascular ischemic changes. Midline shift: None. Cerebellum: Normal. Brainstem: Normal. Paranasal sinuses:Clear IMPRESSION:No acute intracranial abnormality.
[2018-09-27 15:50] VITALS: BP 135/77; TEMP 97.8
--- NOTE | 2018-09-28 15:12 | DIS ---
DATE OF ADMISSION: 09/25/2018 DATE OF DISCHARGE: 09/27/2018 PRIMARY CARE PHYSICIAN: Michelle Conner DO. DISCHARGE DISPOSITION: Home. PRIMARY DISCHARGE DIAGNOSES: 1. Chest pain, likely due to musculoskeletal after CPR. 2. Syncope, likely due to orthostatic hypotension/vertigo. 3. Vertigo. 4. Elevated D-dimer, ruled out thromboembolism. SECONDARY DISCHARGE DIAGNOSES: 1. History of breast cancer. 2. Hypertension. 3. Obesity. 4. Alcohol abuse. PRIMARY PROCEDURE/OPERATION: None. RADIOLOGICAL INVESTIGATION: CT angio negative for PE. Echocardiography normal. Stress test negative. MRI brain normal. SIGNIFICANT LABS: D-dimer 0.6. Troponin negative x3. Lipase 12. CBC and BMP were unremarkable. Only one troponin with 0.041. Potassium on admission 3.1. LFT normal. Urinalysis normal. Urine drug screen negative. Alcohol level 151. DISCHARGE MEDICATIONS: 1. Antivert 25 mg p.o. t.i.d. p.r.n. 2. Cetirizine with pseudoephedrine 1 tablet p.o. as directed p.r.n. 3. Estradiol 1 mg p.o. daily. 4. Lisinopril 5 mg daily. CONTRAINDICATION: None. CODE STATUS: Full code. INPATIENT DRAINAGE INSPECTOR: None. ALLERGIES: BACLOFEN, CODEINE, HYDROCODONE, MORPHINE, TIZANIDINE. DISCHARGE PLAN: Post hospital, the patient will follow up with primary care physician and primary health care facility administrator if needed. HOSPITAL COURSE: A 57-year-old female, who was brought to ER after a syncopal episode. The patient was standing and she felt dizzy and she fell down and subsequently, she was unresponsive. Bystander started doing CPR and subsequently, the patient was complaining of chest pain. The patient was initially taken to [facility]. Over there, all blood test was unremarkable except potassium was low from hydrochlorothiazide and her D-dimer was slightly elevated and that is why CT angio was done, which was negative for PE. EKG was unremarkable. Echocardiography was done, which was unremarkable. The patient was also having vertiginous symptoms and that is why we did MRI brain that came back normal. The patient's symptomatology improved with meclizine. She was also intoxicated on admission. This patient was recently started taking high dose of blood pressure medicine that was contributing to our orthostatic hypotension, which was corrected after IV fluid. On discharge, we reduced dose of blood pressure medication to only lisinopril 5 mg p.o. daily. Rest of medication was continued as per previous. We also prescribed Antivert. At this point, the patient does have clinical presentation consistent with vertigo from most likely benign positional vertigo. Head MRI is negative. She does not have any arrhythmia on monitor and we are not suspecting any cardiac etiology. We did stress test that came back normal. Echocardiography was normal. The patient is overall doing very well and she expressed her expression to go home. The patient was seen and examined on the day of discharge. Please see my progress note from that day. Job ID: [id number]
== END 2018-09-27 18:56 | disposition home or self-care (01) | DRG 312 ==
LOC: ERS 02:38 → 2SE 04:50
PROVIDERS: ADMIT Internal Medicine; ATTEND Internal Medicine
DX: I95.2 Hypotension due to drugs (principal); R07.89 Other chest pain; T46.4X5A Adverse effect of angiotensin-converting-enzyme inhibitors, initial encounter; I10 Essential (primary) hypertension; K58.9 Irritable bowel syndrome, unspecified; E87.6 Hypokalemia; F10.129 Alcohol abuse with intoxication, unspecified; Z68.30 Body mass index [BMI] 30.0-30.9, adult; E66.9 Obesity, unspecified; R79.89 Other specified abnormal findings of blood chemistry; Z98.890 Other specified postprocedural states; Z85.3 Personal history of malignant neoplasm of breast; Z79.899 Other long term (current) drug therapy; Z88.8 Allergy status to other drugs, medicaments and biological substances; Z82.49 Family history of ischemic heart disease and other diseases of the circulatory system; Z80.0 Family history of malignant neoplasm of digestive organs
CPT/HCPCS: 36415; 70551; 71275; 78452; 83690; 85379; 93005; 93017; 93306; 96374; 96375; A9500; J0153; J1650; J2270; J2405; J3010; J8499; Q9966

== ENCOUNTER 2020-09-15 12:43 | Inpatient (IN) | payer OTHER ==
[2020-09-15] MEDS ORDERED: Dexamethasone 4 MG TAB ONE (14:15)
[2020-09-15] MEDS ORDERED: cefTRIAXone\\ROCEPHIN 2 GM VIAL ONE (14:15)
[2020-09-15 14:27] LABS: Hemoglobin 15.5 g/dL (12.0-16.0); Mean Corpuscular HGB CONC 33.2 g/dL (32.0-36.0); Mean Corpuscular Hemoglobin 28.8 pg (27.0-31.0); Mean Corpuscular Volume 86.7 fL (78.0-98.0); RBC Distribution Width 12.4 % (11.5-14.5); Red Blood Cell (RBC) Count 5.39 mill/uL (4.20-5.40); White Blood Cell (WBC) Count 12.2 thou/uL (4.8-10.8)
[2020-09-15 14:39] LABS: ALT (SGPT) 24 U/L (8-55); AST (SGOT) 20 U/L (5-34); Albumin 4.3 g/dL (3.5-5.0); Alkaline Phosphatase 91 U/L (40-110); Anion Gap 14 mmol/L (10-20); BUN (Urea Nitrogen) 10 mg/dL (9.8-20.1); Bilirubin, Total 1.2 mg/dL (0.2-1.2); Calc. Creatinine Clearance 0 mL/min (70-130); Carbon Dioxide 24 mmol/L (22-29); Chloride 102 mmol/L (98-107); Globulin 3.7 g/dL (2.4-3.5); Glucose 96 mg/dL (70-105); Sodium 136 mmol/L (136-145)
[2020-09-15 14:43] LABS: Band 18 % (5-11); Lymphocytes 7 % (21-51); MDiff Complete? YES; Mean Platelet Volume 8.1 fL (7.4-10.4); Monocytes 13 % (0-10); Neutrophil 53 % (42-75); Platelet Count 224 thou/uL (130-400); Platelet Morphology Comment Appears Adequate; Polychromasia SLIGHT = 2-3 cells (100X) (0-2/hpf); Reactive Lymphocytes 9 % (0-10)
[2020-09-15 15:32] LABS: Bilirubin Negative (Negative); Blood, Urine Negative (Negative); Clarity Clear (Clear); Glucose, Urine (Dipstick) Normal (Negative); Ketone, Urine Negative (Negative); Leukocyte Negative Leu/uL (Negative); Nitrite Negative (Negative); Protein, Urine (Dipstick) Negative (Neg-Trace); Specific Gravity, Urine 1.013 (1.002-1.036); Urobilinogen Normal mg/dL (Less than 2)
[2020-09-15 18:57] LABS: SARS-CoV-2 NAA Rapid Test Not Detected (NotDetected)
[2020-09-15] MEDS ORDERED: Guaifenesin DM 100-10/5 ML UDCUP PO PRN (19:16)
[2020-09-15] MEDS ORDERED: Bisacodyl 10 MG SUPP PR PRN (19:16)
[2020-09-15] MEDS ORDERED: Calcium Carbonate 500 MG ChewTAB PO PRN (19:16)
[2020-09-15] MEDS ORDERED: Ondansetron PF 4 MG/2 ML Vial IVP PRN (19:16)
[2020-09-15] MEDS ORDERED: Acetaminophen 325 MG TAB PO PRN (19:16)
[2020-09-15] MEDS ORDERED: Senokot S 8.6-50 MG TAB PO PRN (19:16)
[2020-09-15] MEDS ORDERED: Zolpidem Tartrate 5 MG TAB PO PRN (19:16)
[2020-09-15] MEDS ORDERED: Ondansetron ODT 4 MG TAB PO PRN (19:16)
[2020-09-15] MEDS ORDERED: Sodium Chloride 0.9% 1,000 ML IV SCH (19:30)
[2020-09-15 20:57] VITALS: BMI 35.6
[2020-09-15] MEDS: Famotidine 20 MG TAB PO SCH (21:20)
[2020-09-16 06:28] LABS: #Lymphocytes 1.1 thou/uL (1.20-3.40); #Monocytes 0.5 thou/uL (0.11-0.59); #Neutrophils 7.8 thou/uL (1.40-6.50); %Eosinophils 0.1 % (0.0-10.0); %Lymphocytes 11.6 % (21.0-51.0); %Monocytes 5.7 % (0.0-10.0); %Neutrophils 82.6 % (42.0-75.0); Mean Corpuscular HGB CONC 32.3 g/dL (32.0-36.0); Mean Corpuscular Hemoglobin 28.2 pg (27.0-31.0); Mean Corpuscular Volume 87.2 fL (78.0-98.0); Mean Platelet Volume 7.7 fL (7.4-10.4); Platelet Count 254 thou/uL (130-400); RBC Distribution Width 12.2 % (11.5-14.5); Red Blood Cell (RBC) Count 4.61 mill/uL (4.20-5.40); White Blood Cell (WBC) Count 9.4 thou/uL (4.8-10.8)
[2020-09-16 06:49] LABS: Anion Gap 13 mmol/L (10-20); BUN (Urea Nitrogen) 13 mg/dL (9.8-20.1); Calc. Creatinine Clearance 108 mL/min (70-130); Calcium 8.2 mg/dL (7.8-10.44); Carbon Dioxide 18 mmol/L (22-29); Chloride 111 mmol/L (98-107); Glucose 133 mg/dL (70-105); Potassium 3.9 mmol/L (3.5-5.1); Sodium 138 mmol/L (136-145)
[2020-09-16] MEDS: Famotidine 20 MG TAB PO SCH ×2 (08:16→20:42)
[2020-09-16 08:58] LABS: Troponin I Less than 0.010 ng/mL (< 0.028)
[2020-09-16] MEDS ORDERED: Meclizine HCl 25 MG TAB PO PRN (13:52)
[2020-09-16] MEDS ORDERED: Gabapentin 300 MG CAP PO PRN (13:52)
[2020-09-16] MEDS ORDERED: Loratadine/Pseudoephedrine 10/240 mg Tablet PO PRN (14:40)
[2020-09-16] MEDS ORDERED: Estradiol 1 MG TAB PO SCH (14:45)
[2020-09-16] MEDS: cefTRIAXone\\ROCEPHIN 1 GM in Sodium Chloride 0.9% 100 ML IVPB SCH (14:53)
[2020-09-16] MEDS: Sodium Chloride 0.9% 1,000 ML IV SCH (14:54)
[2020-09-16] MEDS ORDERED: Communication Order-Pharmacy FS SCH (15:00)
[2020-09-16] MEDS ORDERED: Oxymetazoline HCl 0.05% (30 ML BOT) NS PRN (18:57)
[2020-09-17] MEDS: Sodium Chloride 0.9% 1,000 ML IV SCH ×2 (00:52→11:39)
[2020-09-17 07:06] LABS: #Eosinphils 0.1 thou/uL (0.0-0.7); #Lymphocytes 2.8 thou/uL (1.20-3.40); #Monocytes 0.7 thou/uL (0.11-0.59); #Neutrophils 5.5 thou/uL (1.40-6.50); %Basophils 0.2 % (0.0-1.0); %Eosinophils 1.1 % (0.0-10.0); %Lymphocytes 30.6 % (21.0-51.0); %Monocytes 7.6 % (0.0-10.0); %Neutrophils 60.4 % (42.0-75.0); Hemoglobin 12.5 g/dL (12.0-16.0); Mean Corpuscular HGB CONC 32.5 g/dL (32.0-36.0); Mean Corpuscular Hemoglobin 28.3 pg (27.0-31.0); Mean Corpuscular Volume 87.1 fL (78.0-98.0); Mean Platelet Volume 7.4 fL (7.4-10.4); Platelet Count 246 thou/uL (130-400); RBC Distribution Width 12.1 % (11.5-14.5); Red Blood Cell (RBC) Count 4.42 mill/uL (4.20-5.40)
[2020-09-17] MEDS: Lisinopril 5 MG TAB PO SCH (07:13)
[2020-09-17] MEDS: Estradiol 1 MG TAB PO SCH (07:13)
[2020-09-17] MEDS: Famotidine 20 MG TAB PO SCH (07:13)
[2020-09-17] MEDS: Furosemide 40 MG TAB PO SCH (07:14)
[2020-09-17 07:24] LABS: Anion Gap 11 mmol/L (10-20); BUN (Urea Nitrogen) 15 mg/dL (9.8-20.1); Calc. Creatinine Clearance 102 mL/min (70-130); Calcium 8.1 mg/dL (7.8-10.44); Carbon Dioxide 20 mmol/L (22-29); Chloride 111 mmol/L (98-107); Glucose 85 mg/dL (70-105); Potassium 3.7 mmol/L (3.5-5.1); Sodium 138 mmol/L (136-145)
[2020-09-17] MEDS ORDERED: Estradiol 1 MG TAB PO SCH (09:00)
[2020-09-17] MEDS ORDERED: Lidocaine 1% (PF) 30 ML VIAL ONE (10:28)
[2020-09-17] MEDS ORDERED: Nitroglycerin 100MG/250ML BOT 250 ML ONE (10:45)
[2020-09-17] MEDS ORDERED: Heparin 10,000 UNITS/ 10 ML VIAL ONE (10:45)
[2020-09-17] MEDS ORDERED: Verapamil 5 MG/2 ML VIAL ONE (10:45)
[2020-09-17] MEDS ORDERED: Midazolam HCl 2 mg/2 ml Vial ONE (11:14)
[2020-09-17] MEDS ORDERED: Fentanyl 100 MCG/2 ML VIAL ONE (11:14)
[2020-09-17] MEDS ORDERED: Sodium Chloride 0.9% 200 ML IV PRN (11:58)
[2020-09-17] MEDS ORDERED: Sodium Chloride 0.9% 500 ML IV SCH (12:00)
[2020-09-17] MEDS: cefTRIAXone\\ROCEPHIN 1 GM in Sodium Chloride 0.9% 100 ML IVPB SCH (14:04)
[2020-09-17] MEDS ORDERED: GoLYTELY 4,000 ml Bottle PO SCH (15:00)
[2020-09-17] MEDS ORDERED: Sodium Chloride 0.9% (PF) 10 ML VIAL FS PRN (15:15)
[2020-09-17] MEDS ORDERED: Pantoprazole 40 MG VIAL IVP SCH ×2 (15:15→21:00)
[2020-09-18] MEDS ORDERED: Pantoprazole 40 MG VIAL IVP SCH (06:00)
[2020-09-18 07:55] LABS: #Eosinphils 0.1 thou/uL (0.0-0.7); #Lymphocytes 1.8 thou/uL (1.20-3.40); #Monocytes 0.6 thou/uL (0.11-0.59); #Neutrophils 4.3 thou/uL (1.40-6.50); %Basophils 0.5 % (0.0-1.0); %Eosinophils 2.1 % (0.0-10.0); %Lymphocytes 25.8 % (21.0-51.0); %Monocytes 8.7 % (0.0-10.0); %Neutrophils 62.9 % (42.0-75.0); Hemoglobin 13.4 g/dL (12.0-16.0); Mean Corpuscular HGB CONC 33.2 g/dL (32.0-36.0); Mean Corpuscular Hemoglobin 28.5 pg (27.0-31.0); Mean Corpuscular Volume 85.9 fL (78.0-98.0); Platelet Count 287 thou/uL (130-400); RBC Distribution Width 12.1 % (11.5-14.5); Red Blood Cell (RBC) Count 4.69 mill/uL (4.20-5.40); White Blood Cell (WBC) Count 6.8 thou/uL (4.8-10.8)
[2020-09-18 08:16] LABS: Anion Gap 14 mmol/L (10-20); BUN (Urea Nitrogen) 10 mg/dL (9.8-20.1); Calc. Creatinine Clearance 103 mL/min (70-130); Calcium 8.5 mg/dL (7.8-10.44); Carbon Dioxide 22 mmol/L (22-29); Chloride 107 mmol/L (98-107); Glucose 89 mg/dL (70-105); Potassium 3.7 mmol/L (3.5-5.1); Sodium 139 mmol/L (136-145)
[2020-09-18] MEDS: Lisinopril 5 MG TAB PO SCH (09:10)
[2020-09-18] MEDS: Estradiol 1 MG TAB PO SCH (09:10)
[2020-09-18] MEDS ORDERED: Lidocaine 1% PF 5 ML VIAL ONE (12:30)
[2020-09-18] MEDS ORDERED: PROPOFOL 200 MG/20 ML VIAL ONE (12:30)
[2020-09-18 15:29] VITALS: TEMP 97.7
[2020-09-18] MEDS: Furosemide 40 MG TAB PO SCH (15:37)
[2020-09-18] MEDS: cefTRIAXone\\ROCEPHIN 1 GM in Sodium Chloride 0.9% 100 ML IVPB SCH (15:40)
[2020-09-18 16:09] VITALS: BP 141/74
== END 2020-09-18 17:37 | disposition home or self-care (01) | DRG 286 ==
LOC: ERS 12:43 → OBSVTOIN 18:05 → T4-B 18:05 → 2SE 09-16 09:28
PROVIDERS: ADMIT Family Medicine; ATTEND Hospitalist
PROC: 4A023N7 Measurement of Cardiac Sampling and Pressure, Left Heart, Percutaneous Approach (ICD-10-PCS; principal; 2020-09-15)
PROC: B2111ZZ Fluoroscopy of Multiple Coronary Arteries using Low Osmolar Contrast (ICD-10-PCS; 2020-09-15)
PROC: 0DB78ZX Excision of Stomach, Pylorus, Via Natural or Artificial Opening Endoscopic, Diagnostic (ICD-10-PCS; 2020-09-18)
PROC: 0DJD8ZZ Inspection of Lower Intestinal Tract, Via Natural or Artificial Opening Endoscopic (ICD-10-PCS; 2020-09-18)
DX: R07.9 Chest pain, unspecified (principal); K29.71 Gastritis, unspecified, with bleeding; J02.8 Acute pharyngitis due to other specified organisms; I10 Essential (primary) hypertension; E66.9 Obesity, unspecified; I25.10 Atherosclerotic heart disease of native coronary artery without angina pectoris; E78.5 Hyperlipidemia, unspecified; G62.9 Polyneuropathy, unspecified; E86.9 Volume depletion, unspecified; R13.10 Dysphagia, unspecified; K29.70 Gastritis, unspecified, without bleeding; Z80.0 Family history of malignant neoplasm of digestive organs; Z88.1 Allergy status to other antibiotic agents; Z85.3 Personal history of malignant neoplasm of breast; Z90.49 Acquired absence of other specified parts of digestive tract; Z90.13 Acquired absence of bilateral breasts and nipples; Z90.710 Acquired absence of both cervix and uterus; Z68.35 Body mass index [BMI] 35.0-35.9, adult
CPT/HCPCS: 0240U; 36415; 71046; 80048; 80053; 81003; 83605; 84484; 85025; 85379; 86140; 87040; 87086; 88305; 93005; 93306; 93454; 93970; 96365; 96376; 99152; C9113; G0378; J0696; J1644; J2001; J2250; J2704; J3010; J3490; J8540

== ENCOUNTER 2021-02-04 12:28 | Outpatient (CLI) | payer OTHER ==
[2021-02-04 21:50] LABS: SARS-CoV-2 PCR by NAA Not Detected (NotDetected)
== END 2021-02-04 12:29 | disposition home or self-care (01) ==
LOC: LABBT 12:28
PROVIDERS: ATTEND Ophthalmology Retina Specialist
DX: Z01.812 Encounter for preprocedural laboratory examination (principal); H43.822 Vitreomacular adhesion, left eye; Z20.822 Contact with and (suspected) exposure to COVID-19
CPT/HCPCS: U0003; U0005

== ENCOUNTER 2021-02-07 06:27 | Day surgery (SDC) | payer OTHER ==
[2021-02-06 10:29] VITALS: BMI 36.6
[2021-02-07] MEDS ORDERED: Fluorouracil 100 MG, Enoxaparin Sodium 25 MG, EPINEPHrine 0.3 MG in Ophthalmic Irrigati... IRR SCH (06:45)
[2021-02-07] MEDS ORDERED: Phenylephrine 2.5% Ophth Soln 5 ML BOT ONE (06:47)
[2021-02-07] MEDS ORDERED: Cyclopentolate 1% Opth Drop 2 ML BOT ONE (06:47)
[2021-02-07] MEDS ORDERED: Midazolam HCl 2 mg/2 ml Vial ONE (07:54)
[2021-02-07] MEDS ORDERED: Fentanyl 100 MCG/2 ML VIAL ONE (07:54)
[2021-02-07] MEDS ORDERED: CEFAZOLIN 1 GM VIAL ONE (07:57)
[2021-02-07] MEDS ORDERED: PROPOFOL 200 MG/20 ML VIAL ONE (07:57)
[2021-02-07] MEDS ORDERED: Triamcinolone 40 MG/ML VIAL ONE (07:57)
[2021-02-07] MEDS ORDERED: Bupivacaine PF 0.75% SDV 10 ML ONE (07:57)
[2021-02-07] MEDS ORDERED: Lidocaine 4% PF 5 ML AMP ONE (07:57)
[2021-02-07] MEDS ORDERED: Enoxaparin Sodium 30 MG/0.3 ML SYRINGE ONE (07:57)
[2021-02-07] MEDS ORDERED: Lidocaine 1% PF 5 ML VIAL ONE (07:57)
[2021-02-07] MEDS ORDERED: Maxitrol 0.1% Opth Oint 3.5 GM TUBE ONE (07:57)
== END 2021-02-07 08:55 | disposition home or self-care (01) ==
LOC: SDC 06:27
PROVIDERS: ATTEND Ophthalmology Retina Specialist
PROC: 08T53ZZ Resection of Left Vitreous, Percutaneous Approach (ICD-10-PCS; principal; 2021-02-07)
PROC: 08NF3ZZ Release Left Retina, Percutaneous Approach (ICD-10-PCS; principal; 2021-02-07)
DX: H43.822 Vitreomacular adhesion, left eye (principal); H35.372 Puckering of macula, left eye; I25.2 Old myocardial infarction; I10 Essential (primary) hypertension; Z79.899 Other long term (current) drug therapy; Z88.5 Allergy status to narcotic agent; Z88.8 Allergy status to other drugs, medicaments and biological substances; Z91.013 Allergy to seafood; Z91.018 Allergy to other foods
CPT/HCPCS: J0171; J0690; J1650; J2250; J2704; J3010; J3301; J3490; J9190

== ENCOUNTER 2021-04-08 17:53 | Outpatient (CLI) | payer OTHER ==
[2021-04-09 13:00] LABS: SARS-CoV-2 PCR by NAA Not Detected (NotDetected)
== END 2021-04-08 17:54 | disposition home or self-care (01) ==
LOC: LABBT 17:53
PROVIDERS: ATTEND Ophthalmology Retina Specialist
DX: Z01.812 Encounter for preprocedural laboratory examination (principal); Z20.822 Contact with and (suspected) exposure to COVID-19
CPT/HCPCS: U0003; U0005

== ENCOUNTER 2021-04-11 06:26 | Day surgery (SDC) | payer OTHER ==
[2021-04-09 14:29] VITALS: BMI 40.2
[~2021-04-11 06:26] MED LIST: EPINEPHrine 0.3 MG, Dextrose 50% 3 ML in Ophthalmic Irrigation Solution 500 ML IRR SCH
[2021-04-11] MEDS ORDERED: Phenylephrine 2.5% Ophth Soln 5 ML BOT ONE (06:46)
[2021-04-11] MEDS ORDERED: Cyclopentolate 1% Opth Drop 2 ML BOT ONE (06:46)
[2021-04-11] MEDS ORDERED: Triamcinolone 40 MG/ML VIAL ONE (07:51)
[2021-04-11] MEDS ORDERED: Dextrose 50% Abboject 50 ML SYRINGE ONE (07:51)
[2021-04-11] MEDS ORDERED: PROPOFOL 200 MG/20 ML VIAL ONE (07:51)
[2021-04-11] MEDS ORDERED: Lidocaine 4% PF 5 ML AMP ONE (07:51)
[2021-04-11] MEDS ORDERED: Maxitrol 0.1% Opth Oint 3.5 GM TUBE ONE (07:51)
[2021-04-11] MEDS ORDERED: CEFAZOLIN 1 GM VIAL ONE (07:51)
[2021-04-11] MEDS ORDERED: Lidocaine 1% PF 5 ML VIAL ONE (07:51)
[2021-04-11] MEDS ORDERED: Bupivacaine PF 0.75% SDV 10 ML ONE (07:51)
== END 2021-04-11 08:57 | disposition home or self-care (01) ==
LOC: SDC 06:26
PROVIDERS: ATTEND Ophthalmology Retina Specialist
PROC: 08T43ZZ Resection of Right Vitreous, Percutaneous Approach (ICD-10-PCS; principal; 2021-04-11)
PROC: 08NE3ZZ Release Right Retina, Percutaneous Approach (ICD-10-PCS; principal; 2021-04-11)
DX: H43.311 Vitreous membranes and strands, right eye (principal); Z79.899 Other long term (current) drug therapy; Z88.5 Allergy status to narcotic agent; Z88.8 Allergy status to other drugs, medicaments and biological substances; Z91.013 Allergy to seafood
CPT/HCPCS: J0171; J0690; J2704; J3301; J3490

== ENCOUNTER 2022-02-26 20:13 | Emergency (ER) | payer OTHER ==
[2022-02-26 21:04] LABS: #Eosinphils 0.2 thou/uL (0.0-0.7); #Neutrophils 5.1 thou/uL (1.40-6.50); %Basophils 0.4 % (0.0-1.0); %Eosinophils 2.5 % (0.0-10.0); %Monocytes 10.8 % (0.0-10.0); %Neutrophils 54.2 % (42.0-75.0); Hemoglobin 14.3 g/dL (12.0-16.0); Mean Corpuscular HGB CONC 33.1 g/dL (32.0-36.0); Mean Corpuscular Hemoglobin 29.4 pg (27.0-31.0); Mean Corpuscular Volume 88.9 fL (78.0-98.0); Mean Platelet Volume 7.4 fL (7.4-10.4); Platelet Count 337 thou/uL (130-400); RBC Distribution Width 12.1 % (11.5-14.5); Red Blood Cell (RBC) Count 4.86 mill/uL (4.20-5.40); White Blood Cell (WBC) Count 9.3 thou/uL (4.8-10.8)
[2022-02-26 21:24] LABS: ALT (SGPT) 21 U/L (8-55); AST (SGOT) 15 U/L (5-34); Albumin 3.9 g/dL (3.5-5.0); Alkaline Phosphatase 73 U/L (40-110); Anion Gap 12 mmol/L (10-20); BUN (Urea Nitrogen) 10 mg/dL (9.8-20.1); Bilirubin, Total 0.4 mg/dL (0.2-1.2); CK (CPK) 90 U/L (29-168); Calc. Creatinine Clearance 0 mL/min (70-130); Carbon Dioxide 24 mmol/L (22-29); Chloride 103 mmol/L (98-107); Estimated GFR 69; Glucose 100 mg/dL (70-105); Lipase 19 U/L (8-78); Potassium 3.7 mmol/L (3.5-5.1); Protein, Total 6.9 g/dL (6.0-8.3); Sodium 135 mmol/L (136-145)
[2022-02-27 01:21] LABS: Troponin I Less than 0.010 ng/mL (< 0.028)
== END 2022-02-27 01:34 | disposition home or self-care (01) ==
LOC: ERS 20:13
DX: R07.2 Precordial pain (principal); R06.02 Shortness of breath; I10 Essential (primary) hypertension; E03.9 Hypothyroidism, unspecified
CPT/HCPCS: 36415; 71045; 80053; 82550; 83690; 83880; 84484; 85025; 93005

== ENCOUNTER 2022-12-16 13:42 | Inpatient (IN) | payer BC, OTHER ==
[~2022-12-16 13:42] MED LIST changes: -EPINEPHrine 0.3 MG, Dextrose 50% 3 ML in Ophthalmic Irrigation Solution 500 ML IRR SCH; +Iopamidol-370 76% 500 ML MDV (1 ML CHARGE) ONE
[2022-12-16 14:34] LABS: #Monocytes 0.9 thou/uL (0.11-0.59); #Neutrophils 7.2 thou/uL (1.40-6.50); %Basophils 0.4 % (0.0-1.0); %Eosinophils 0.1 % (0.0-10.0); %Lymphocytes 15.8 % (21.0-51.0); %Monocytes 9.4 % (0.0-10.0); Hematocrit 44.3 % (36.0-47.0); Hemoglobin 15.3 g/dL (12.0-16.0); Mean Corpuscular HGB CONC 34.5 g/dL (32.0-36.0); Mean Corpuscular Volume 84.1 fl (78.0-98.0); Mean Platelet Volume 10.4 fL (7.4-10.4); Platelet Count 222 10x3/uL (130-400); RBC Distribution Width 12.5 % (11.5-14.5); Red Blood Cell (RBC) Count 5.27 mill/uL (4.20-5.40); White Blood Cell (WBC) Count 9.8 10x3/uL (4.8-10.8)
[2022-12-16 15:38] LABS: ALT (SGPT) 24 U/L (8-55); AST (SGOT) 18 U/L (5-34); Albumin 4.2 g/dL (3.4-4.8); Alkaline Phosphatase 60 U/L (40-110); Anion Gap 15 mmol/L (10-20); BUN (Urea Nitrogen) 10 mg/dL (9.8-20.1); Bilirubin, Total 1.1 mg/dL (0.2-1.2); CK (CPK) 39 U/L (29-168); Calc. Creatinine Clearance 0 mL/min (70-130); Calcium 9.1 mg/dL (7.8-10.44); Carbon Dioxide 22 mmol/L (23-31); Chloride 100 mmol/L (98-107); Estimated GFR 69; Globulin 3.1 g/dL (2.4-3.5); Glucose 91 mg/dL (80-115); Lipase 10 U/L (8-78); Potassium 3.1 mmol/L (3.5-5.1); Protein, Total 7.3 g/dL (5.8-8.1); Sodium 134 mmol/L (136-145)
[2022-12-16] MEDS ORDERED: Ondansetron PF 4 MG/2 ML Vial ONE (15:49)
[2022-12-16] MEDS ORDERED: Ketorolac Tromethamine 30 MG/ML VIAL ONE (15:49)
[2022-12-16] MEDS ORDERED: Potassium Chloride 20 MEQ TAB ONE (16:52)
[2022-12-16 17:08] LABS: Bacteria/HPF 1+ HPF (None Seen); Bilirubin Negative (Negative); Blood, Urine Negative (Negative); CAUTI Indications for Culture Pelvic or flank pain; Clarity Clear (Clear); Glucose, Urine (Dipstick) Normal (Negative); Ketone, Urine 20 mg/dL (Negative); Leukocyte Negative Leu/uL (Negative); Nitrite Negative (Negative); Protein, Urine (Dipstick) Negative (Neg-Trace); RBC/HPF 0-3 HPF (0-3); Specific Gravity, Urine 1.028 (1.002-1.036); WBC/HPF 0-3 HPF (0-3)
[2022-12-16 17:09] LABS: Urine Culture Reflex No No
[2022-12-16] MEDS ORDERED: Aspirin Chewable 81 MG TAB ONE (17:29)
[2022-12-16] MEDS ORDERED: Morphine 4 MG/ML VIAL ONE (18:17)
[2022-12-16] MEDS ORDERED: Ondansetron PF 4 MG/2 ML Vial IVP PRN (18:38)
[2022-12-16] MEDS ORDERED: Fentanyl 100 MCG/2 ML VIAL SLOW IVP PRN (18:41)
[2022-12-16] MEDS ORDERED: fentaNYL 50 mcg/mL 1 mL Vial ONE (18:45)
[2022-12-16 18:49] LABS: Troponin I Less than 0.010 ng/mL (< 0.028)
[2022-12-16 20:17] VITALS: BMI 31.6
[2022-12-16 20:26] LABS: Hemoglobin A1c 5.4 % (4.0-6.0)
[2022-12-16 20:38] LABS: Troponin I Less than 0.010 ng/mL (< 0.028)
[2022-12-16] MEDS: Potassium Chloride 20 MEQ in Premix Bag 1 BAG IVPB SCH (22:19)
[2022-12-16] MEDS: Sodium Chloride 0.9% 1,000 ML IV SCH (22:20)
[2022-12-16] MEDS: Famotidine/PF 20 mg/2ml Vial SLOW IVP SCH (22:22)
[2022-12-16] MEDS: fentaNYL 50 mcg/mL 1 mL Vial SLOW IVP PRN (22:23)
[2022-12-17] MEDS: fentaNYL 50 mcg/mL 1 mL Vial SLOW IVP PRN ×8 (00:14→22:23)
[2022-12-17] MEDS: Sodium Chloride 0.9% 1,000 ML IV SCH ×3 (00:20→18:03)
[2022-12-17] MEDS: Potassium Chloride 20 MEQ in Premix Bag 1 BAG IVPB SCH (04:58)
[2022-12-17 05:39] LABS: #Monocytes 0.8 thou/uL (0.11-0.59); #Neutrophils 4.8 thou/uL (1.40-6.50); %Basophils 0.4 % (0.0-1.0); %Eosinophils 0.3 % (0.0-10.0); %Lymphocytes 21.2 % (21.0-51.0); %Monocytes 10.5 % (0.0-10.0); %Neutrophils 67.5 % (42.0-75.0); Hematocrit 39.5 % (36.0-47.0); Hemoglobin 13.3 g/dL (12.0-16.0); Mean Corpuscular HGB CONC 33.7 g/dL (32.0-36.0); Mean Corpuscular Hemoglobin 28.8 pg (27.0-31.0); Mean Corpuscular Volume 85.5 fl (78.0-98.0); Mean Platelet Volume 10.1 fL (7.4-10.4); Platelet Count 209 10x3/uL (130-400); RBC Distribution Width 12.8 % (11.5-14.5); Red Blood Cell (RBC) Count 4.62 mill/uL (4.20-5.40); White Blood Cell (WBC) Count 7.1 10x3/uL (4.8-10.8)
[2022-12-17 06:08] LABS: ALT (SGPT) 19 U/L (8-55); AST (SGOT) 16 U/L (5-34); Albumin 3.5 g/dL (3.4-4.8); Alkaline Phosphatase 49 U/L (40-110); Anion Gap 14 mmol/L (10-20); BUN (Urea Nitrogen) 10 mg/dL (9.8-20.1); Bilirubin, Total 0.8 mg/dL (0.2-1.2); Calc. Creatinine Clearance 84 mL/min (70-130); Carbon Dioxide 19 mmol/L (23-31); Chloride 107 mmol/L (98-107); Estimated GFR 76; Globulin 2.5 g/dL (2.4-3.5); Glucose 86 mg/dL (80-115); Potassium 3.3 mmol/L (3.5-5.1); Sodium 137 mmol/L (136-145)
[2022-12-17] MEDS: Famotidine/PF 20 mg/2ml Vial SLOW IVP SCH ×2 (10:01→20:13)
[2022-12-18 01:26] LABS: Campy jejuni + coli by PCR Negative (Negative); STEC Shiga Toxin 1+2 Negative (Negative); Salmonella spp. by PCR POSITIVE (Negative); Shigella spp + EIEC by PCR Negative (Negative)
[2022-12-18] MEDS: fentaNYL 50 mcg/mL 1 mL Vial SLOW IVP PRN ×6 (01:40→23:40)
[2022-12-18] MEDS: Sodium Chloride 0.9% 1,000 ML IV SCH ×3 (04:15→16:53)
[2022-12-18] MEDS ORDERED: Sevoflurane 250 ML INH ANEST BOTTLE ONE (04:18)
[2022-12-18 05:12] LABS: #Eosinphils 0.1 thou/uL (0.0-0.7); #Monocytes 0.8 thou/uL (0.11-0.59); %Basophils 0.2 % (0.0-1.0); %Eosinophils 0.8 % (0.0-10.0); %Monocytes 12.4 % (0.0-10.0); %Neutrophils 62.4 % (42.0-75.0); Hematocrit 38.1 % (36.0-47.0); Hemoglobin 12.8 g/dL (12.0-16.0); Mean Corpuscular HGB CONC 33.6 g/dL (32.0-36.0); Mean Corpuscular Hemoglobin 29.3 pg (27.0-31.0); Mean Corpuscular Volume 87.2 fl (78.0-98.0); Mean Platelet Volume 10.3 fL (7.4-10.4); Platelet Count 221 10x3/uL (130-400); RBC Distribution Width 12.7 % (11.5-14.5); Red Blood Cell (RBC) Count 4.37 mill/uL (4.20-5.40); White Blood Cell (WBC) Count 6.4 10x3/uL (4.8-10.8)
[2022-12-18 05:47] LABS: Anion Gap 12 mmol/L (10-20); BUN (Urea Nitrogen) 5 mg/dL (9.8-20.1); Calc. Creatinine Clearance 99 mL/min (70-130); Carbon Dioxide 20 mmol/L (23-31); Chloride 110 mmol/L (98-107); Estimated GFR 92; Glucose 88 mg/dL (80-115); Potassium 3.5 mmol/L (3.5-5.1); Sodium 138 mmol/L (136-145)
[2022-12-18] MEDS ORDERED: PROPOFOL 200 MG/20 ML VIAL ONE (09:16)
[2022-12-18] MEDS ORDERED: Lidocaine 1% PF 5 ML VIAL ONE (09:16)
[2022-12-18] MEDS ORDERED: Promethazine HCl 25 MG/ML VIAL IM PRN (09:39)
[2022-12-18] MEDS ORDERED: Ondansetron HCl/PF 4 MG/2 ML Vial IVP PRN (09:39)
[2022-12-18] MEDS: Famotidine/PF 20 mg/2ml Vial SLOW IVP SCH ×2 (10:19→21:30)
[2022-12-19] MEDS: fentaNYL 50 mcg/mL 1 mL Vial SLOW IVP PRN ×4 (01:48→21:42)
[2022-12-19] MEDS ORDERED: methylPREDNISolone Sod Succ/PF 125 MG/2 ML VIAL IVP ONE (11:06)
[2022-12-19] MEDS: Famotidine/PF 20 mg/2ml Vial SLOW IVP SCH ×3 (11:47→21:09)
[2022-12-19] MEDS ORDERED: cefOXitin 2 GM in Sodium Chloride 0.9% 100 ML IVPB SCH (15:15)
[2022-12-19] MEDS ORDERED: Midazolam HCl 2 mg/2 ml Vial ONE (16:57)
[2022-12-19] MEDS ORDERED: Ondansetron HCl/PF 4 MG/2 ML Vial IVP PRN (16:59)
[2022-12-19] MEDS ORDERED: fentaNYL PF 100 MCG/2 ML SYRINGE ONE (16:59)
[2022-12-19] MEDS ORDERED: Promethazine HCl 25 MG/ML VIAL IM PRN ×2 (16:59→17:58)
[2022-12-19] MEDS ORDERED: EPINEPHrine 1 MG/ML AMP ONE (17:05)
[2022-12-19] MEDS ORDERED: Bupivacaine 0.25% HCL 30 ML VIAL ONE (17:05)
[2022-12-19] MEDS ORDERED: cefOXitin 2 GM VIAL ONE (17:08)
[2022-12-19] MEDS ORDERED: Sodium Chloride 0.9% 100 ML ONE (17:08)
[2022-12-19] MEDS ORDERED: SUGAMMADEX SODIUM 200 MG/2 ML VIAL ONE (17:09)
[2022-12-19] MEDS ORDERED: Lidocaine 1% PF 5 ML VIAL ONE (17:15)
[2022-12-19] MEDS ORDERED: PROPOFOL 200 MG/20 ML VIAL ONE (17:15)
[2022-12-19] MEDS ORDERED: Ondansetron PF 4 MG/2 ML Vial ONE (17:15)
[2022-12-19] MEDS ORDERED: Rocuronium Bromide 10 MG/ML (10ML VIAL) ONE (17:15)
[2022-12-19] MEDS ORDERED: Dextrose 50% Abboject 50 ML SYRINGE SLOW IVP PRN (17:58)
[2022-12-19] MEDS ORDERED: Glucagon 1 MG/ML KIT IM PRN (17:58)
[2022-12-19] MEDS ORDERED: Mag-Al 1200 mg/1200 mg/30 ML UDCUP PO PRN (17:58)
[2022-12-19] MEDS ORDERED: hydrALAZINE 20 MG/ML VIAL SLOW IVP PRN (17:58)
[2022-12-19] MEDS ORDERED: Ipratropium/Albuterol 3 ML NEB NEB PRN (17:58)
[2022-12-19] MEDS ORDERED: Dextrose 5% in Water 1,000 ML IV PRN (17:58)
[2022-12-19] MEDS ORDERED: Calcium Carbonate 500 MG ChewTAB PO PRN (17:58)
[2022-12-19] MEDS ORDERED: Ondansetron PF 4 MG/2 ML Vial IVP PRN (17:58)
[2022-12-19] MEDS ORDERED: traMADol HCl 50 MG TAB PO PRN ×2 (18:00)
[2022-12-19] MEDS ORDERED: Fentanyl 100 MCG/2 ML VIAL SLOW IVP PRN (18:02)
[2022-12-19] MEDS ORDERED: fentaNYL 50 mcg/mL 1 mL Vial ONE ×3 (18:21→19:03)
[2022-12-19] MEDS: Ketorolac Tromethamine 30 MG/ML VIAL IVP SCH (19:11)
[2022-12-19] MEDS ORDERED: Ketorolac Tromethamine 30 MG/ML VIAL ONE (19:13)
[2022-12-19] MEDS: Sodium Chloride 0.9% 1,000 ML IV SCH (20:33)
[2022-12-19] MEDS: Famotidine 20 MG TAB PO SCH (21:41)
[2022-12-20] MEDS: Ketorolac Tromethamine 30 MG/ML VIAL IVP SCH ×5 (00:25→20:17)
[2022-12-20] MEDS: fentaNYL 50 mcg/mL 1 mL Vial SLOW IVP PRN ×8 (02:15→22:34)
[2022-12-20] MEDS: Sodium Chloride 0.9% 1,000 ML IV SCH ×3 (04:13→17:07)
[2022-12-20] MEDS: Famotidine 20 MG TAB PO SCH ×2 (08:34→20:15)
[2022-12-20] MEDS: Famotidine/PF 20 mg/2ml Vial SLOW IVP SCH ×3 (08:43→20:04)
[2022-12-20] MEDS: Sulfameth/Trimethoprim DS 800-160mg TAB PO SCH ×2 (09:44→20:15)
[2022-12-20 09:52] LABS: #Monocytes 0.7 thou/uL (0.11-0.59); #Neutrophils 3.9 thou/uL (1.40-6.50); %Basophils 0.5 % (0.0-1.0); %Eosinophils 0.5 % (0.0-10.0); %Monocytes 11.1 % (0.0-10.0); %Neutrophils 61.7 % (42.0-75.0); Hematocrit 38.2 % (36.0-47.0); Hemoglobin 12.9 g/dL (12.0-16.0); Mean Corpuscular HGB CONC 33.8 g/dL (32.0-36.0); Mean Corpuscular Hemoglobin 29.2 pg (27.0-31.0); Mean Corpuscular Volume 86.4 fl (78.0-98.0); Platelet Count 238 10x3/uL (130-400); RBC Distribution Width 12.7 % (11.5-14.5); Red Blood Cell (RBC) Count 4.42 mill/uL (4.20-5.40); White Blood Cell (WBC) Count 6.2 10x3/uL (4.8-10.8)
[2022-12-20 10:25] LABS: ALT (SGPT) 31 U/L (8-55); AST (SGOT) 36 U/L (5-34); Albumin 3.4 g/dL (3.4-4.8); Alkaline Phosphatase 49 U/L (40-110); Anion Gap 9 mmol/L (10-20); BUN (Urea Nitrogen) Less than 4 mg/dL (9.8-20.1); Bilirubin, Total 0.7 mg/dL (0.2-1.2); Calc. Creatinine Clearance 98 mL/min (70-130); Calcium 8.3 mg/dL (7.8-10.44); Carbon Dioxide 24 mmol/L (23-31); Chloride 109 mmol/L (98-107); Estimated GFR 91; Globulin 2.9 g/dL (2.4-3.5); Glucose 84 mg/dL (80-115); Potassium 3.6 mmol/L (3.5-5.1); Protein, Total 6.3 g/dL (5.8-8.1); Sodium 138 mmol/L (136-145)
[2022-12-20] MEDS ORDERED: Sulfameth/Trimethoprim DS 800-160mg TAB PO SCH (21:00)
[2022-12-21] MEDS: fentaNYL 50 mcg/mL 1 mL Vial SLOW IVP PRN ×2 (01:12→06:13)
[2022-12-21] MEDS: Sodium Chloride 0.9% 1,000 ML IV SCH (01:44)
[2022-12-21] MEDS: Ketorolac Tromethamine 30 MG/ML VIAL IVP SCH (04:49)
[2022-12-21 06:28] LABS: #Eosinphils 0.1 thou/uL (0.0-0.7); #Monocytes 0.6 thou/uL (0.11-0.59); #Neutrophils 3.5 thou/uL (1.40-6.50); %Basophils 0.5 % (0.0-1.0); %Eosinophils 1.9 % (0.0-10.0); %Lymphocytes 25.3 % (21.0-51.0); %Monocytes 9.7 % (0.0-10.0); %Neutrophils 62.1 % (42.0-75.0); Hemoglobin 11.3 g/dL (12.0-16.0); Mean Corpuscular HGB CONC 34.2 g/dL (32.0-36.0); Mean Corpuscular Volume 84.8 fl (78.0-98.0); Mean Platelet Volume 10.1 fL (7.4-10.4); Platelet Count 231 10x3/uL (130-400); RBC Distribution Width 12.9 % (11.5-14.5); Red Blood Cell (RBC) Count 3.89 mill/uL (4.20-5.40); White Blood Cell (WBC) Count 5.7 10x3/uL (4.8-10.8)
[2022-12-21 06:58] LABS: Anion Gap 10 mmol/L (10-20); BUN (Urea Nitrogen) Less than 4 mg/dL (9.8-20.1); Calc. Creatinine Clearance 94 mL/min (70-130); Carbon Dioxide 22 mmol/L (23-31); Chloride 110 mmol/L (98-107); Estimated GFR 86; Glucose 93 mg/dL (80-115); Sodium 139 mmol/L (136-145)
[2022-12-21 08:26] VITALS: BP 135/82; TEMP 97.9
[2022-12-21] MEDS ORDERED: fentaNYL 50 mcg/mL 1 mL Vial SLOW IVP PRN (09:02)
[2022-12-21] MEDS: Sulfameth/Trimethoprim DS 800-160mg TAB PO SCH (09:04)
[2022-12-21] MEDS: Famotidine 20 MG TAB PO SCH (09:04)
[2022-12-21] MEDS: Famotidine/PF 20 mg/2ml Vial SLOW IVP SCH (09:10)
== END 2022-12-21 11:53 | disposition home or self-care (01) | DRG 418 ==
LOC: ERS 13:42 → 2SE 17:39 → OBSVTOIN 18:34 → T4-A 12-18 15:55
PROVIDERS: ADMIT Specialist; ATTEND Specialist
PROC: 0DB78ZX Excision of Stomach, Pylorus, Via Natural or Artificial Opening Endoscopic, Diagnostic (ICD-10-PCS; 2022-12-18)
PROC: 0FT44ZZ Resection of Gallbladder, Percutaneous Endoscopic Approach (ICD-10-PCS; principal; 2022-12-19)
DX: K80.44 Calculus of bile duct with chronic cholecystitis without obstruction (principal); A02.0 Salmonella enteritis; K29.80 Duodenitis without bleeding; J45.909 Unspecified asthma, uncomplicated; I10 Essential (primary) hypertension; F32.A Depression, unspecified; I25.10 Atherosclerotic heart disease of native coronary artery without angina pectoris; E86.0 Dehydration; E11.9 Type 2 diabetes mellitus without complications; E03.9 Hypothyroidism, unspecified; Z90.710 Acquired absence of both cervix and uterus; Z90.49 Acquired absence of other specified parts of digestive tract; Z98.890 Other specified postprocedural states; Z88.5 Allergy status to narcotic agent; Z91.013 Allergy to seafood; Z91.09 Other allergy status, other than to drugs and biological substances; I25.2 Old myocardial infarction; Z85.3 Personal history of malignant neoplasm of breast
CPT/HCPCS: 36415; 36416; 71045; 74177; 76705; 78227; 80048; 80053; 81001; 82550; 83036; 83690; 83735; 83880; 84484; 85025; 87505; 88304; 88305; 88342; 93005; 96374; 96375; A9537; C1889; J0171; J0694; J0744; J1885; J2250; J2270; J2405; J2704; J3010; J3480; J3490; J7050; Q9967; S0020; S0028

== ENCOUNTER 2023-12-03 13:27 | Outpatient (CLI) | payer BC | END 2023-12-03 13:28 | disposition home or self-care (01) | LOC: BICMAMMO 13:27 | PROVIDERS: ATTEND Specialist | DX: Z12.31 Encounter for screening mammogram for malignant neoplasm of breast (principal); M85.88 Other specified disorders of bone density and structure, other site; N64.89 Other specified disorders of breast; Z80.3 Family history of malignant neoplasm of breast; Z90.12 Acquired absence of left breast and nipple; Z98.890 Other specified postprocedural states | CPT/HCPCS: 77063; 77067; 77080 ==